=== PATIENT | female | born 1960 | race Caucasian/White ===

== ENCOUNTER 2017-08-17 12:18 | Emergency (ER) | payer SELFPAY ==
--- NOTE | 2017-08-17 15:09 | EDM.PDOC ---
ED HPI GENERAL MEDICAL PROBLEM - General Chief Complaint: Cardiovascular Problem Stated Complaint: CHEST PAIN Time Seen by Provider: 08/17/17 12:25 Source of Information: Reports: Patient, RN Notes Reviewed - History of Present Illness INITIAL COMMENTS - FREE TEXT/NARRATIVE: 57 year old female with sudden onset of sharp pain across mid chest times time this past morning about 1 1/2 hrs ago. Episodes of pain were very brief but than became weak, light headed, dizzy, almost passed out. She feels fine now. Has not been ill. No cough, fever, dyspnea, or hx of Htn, diabetes or CAD. Does not smoke. Neg fam. hx. No abd pain nausea or vomting. Does get GE reflux. 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 Denies: Fever, Chills HEENT: Reports: No Symptoms Respiratory: Reports: Shortness of Breath (mild, gone). Denies: Pleuritic Chest Pain, Cough Cardiovascular: Reports: Chest Pain (gone), Lightheadedness, Other (near syncope ). Denies: Edema GI/Abdominal: Denies: Abdominal Pain, Nausea, Vomiting Musculoskeletal: Denies: Shoulder Pain, Arm Pain, Back Pain Skin: Reports: No Symptoms Neurological: Reports: Dizziness ED EXAM, GENERAL - Physical Exam Exam: See Below General Appearance: Alert, No Apparent Distress Eye Exam: Bilateral Eye: PERRL Throat/Mouth: Normal Inspection Head: Atraumatic Neck: Supple, Full Range of Motion Respiratory/Chest: No Respiratory Distress, Lungs Clear, Normal Breath Sounds Cardiovascular: Regular Rate, Rhythm, Other (chest wall nontender) GI/Abdominal: Soft, Non-Tender Back Exam: Normal Inspection Neurological: Alert, Oriented, No Motor/Sensory Deficits Skin Exam: Warm, Dry, Normal Color Course - Vital Signs Last Recorded V/S: Last Vital Signs Temp 97.5 F 08/17/17 12:20 Pulse 77 08/17/17 12:20 Resp 18 08/17/17 12:20 BP 136/68 08/17/17 12:20 Pulse Ox 100 08/17/17 12:20 - Orders/Labs/Meds Orders: Active Orders 24 hr Category Date Time Status EKG 12 Lead [EKG Documentation Completion] [RC] STAT Care 08/17/17 13:08 Active Holter Monitor 48 Hours [RC] .PRN Care 08/17/17 14:35 Active Labs: Laboratory Tests 08/17/17 08/17/17 Range/Units 13:26 13:26 WBC 6.24 (3.98-10.04) K/mm3 RBC 4.61 (3.98-5.22) M/mm3 Hgb 14.0 (11.2-15.7) gm/L Hct 40.8 (34.1-44.9) % MCV 88.5 (79.4-94.8) fl MCH 30.4 (25.6-32.2) pg MCHC 34.3 (32.2-35.5) g/dl RDW Std Deviation 40.0 (36.4-46.3) fL Plt Count 229 (182-369) K/mm3 MPV 9.6 (9.4-12.3) fl Neut % (Auto) 64.0 (34.0-71.1) % Lymph % (Auto) 24.2 (19.3-51.7) % [place] % (Auto) 9.1 (4.7-12.5) % Eos % (Auto) 2.1 (0.7-5.8) Baso % (Auto) 0.6 (0.1-1.2) % Neut # (Auto) 3.99 (1.56-6.13) K/mm3 Lymph # (Auto) 1.51 (1.18-3.74) K/mm3 [place] # (Auto) 0.57 H (0.24-0.36) K/mm3 Eos # (Auto) 0.13 (0.04-0.36) K/mm3 Baso # (Auto) 0.04 (0.01-0.08) K/mm3 Sodium 140 (136-145) mEq/L Potassium 4.1 (3.5-5.1) mEq/L Chloride 102 (98-107) mEq/L Carbon Dioxide 27 (21-32) mEq/L Anion Gap 15.1 H (5-15) BUN 19 H (7-18) mg/dL Creatinine 0.8 (0.55-1.02) mg/dL Est Cr Clr Drug Dosing 59.89 mL/min Estimated GFR (MDRD) > 60 (>60) mL/min BUN/Creatinine Ratio 23.8 H (14-18) Glucose 89 (74-106) mg/dL Calcium 9.2 (8.5-10.1) mg/dL Total Bilirubin 0.4 (0.2-1.0) mg/dL AST 19 (15-37) U/L ALT 25 (14-59) U/L Alkaline Phosphatase 54 (46-116) U/L Troponin I < 0.017 (0.00-0.056) ng/mL Total Protein 7.1 (6.4-8.2) g/dl Albumin 4.1 (3.4-5.0) g/dl Globulin 3.0 gm/dL Albumin/Globulin Ratio 1.4 (1-2) - Re-Assessments/Exams Free Text/Narrative Re-Assessment/Exam: 08/17/17 15:51 trop, other labs normal, EKG is good, no ectopy, will have her go home with 48 hr holter to further check for possible rythm problem. Departure - Departure Time of Disposition: 15:04 Disposition: Home, Self-Care 01 Condition: Fair Clinical Impression: Atypical chest pain Instructions: Nonspecific Chest Pain, [id number] Referrals: Romeo Boyle MD [Primary Care Provider] - Forms: ED Department Discharge Additional Instructions: 48 hour holter moniter, it will than be read by a Public Events Facilities Rental Manager. Follow up with Dr Tena in about 1 week. Call for appt., return to ED as needed if symptoms worsening in any way. - My Orders Last 24 Hours: My Active Orders 08/17/17 13:08 EKG 12 Lead [EKG Documentation Completion] [RC] STAT 08/17/17 14:35 Holter Monitor 48 Hours [RC] .PRN - Assessment/Plan Last 24 Hours: My Active Orders 08/17/17 13:08 EKG 12 Lead [EKG Documentation Completion] [RC] STAT 08/17/17 14:35 Holter Monitor 48 Hours [RC] .PRN
== END 2017-08-17 15:15 | disposition home or self-care (01) ==
LOC: JD.ED 12:18
DX: R07.89 Other chest pain (principal); K21.9 Gastro-esophageal reflux disease without esophagitis; Z88.8 Allergy status to other drugs, medicaments and biological substances; Z79.899 Other long term (current) drug therapy
CPT/HCPCS: 36415; 80053; 84484; 85025; 93005; 93225; 93226; 99285-25

== ENCOUNTER 2020-09-25 08:09 | Emergency (ER) | payer SELFPAY ==
[2020-09-25] MEDS ORDERED: Ondansetron 4 MG/2 ML SDV IVPUSH ONE (08:27)
[2020-09-25] MEDS ORDERED: Dextrose 5%-0.9% NaCl 1,000 ML IV SCH (08:30)
--- NOTE | 2020-09-25 08:31 | EDM.PDOC ---
ED HPI GENERAL MEDICAL PROBLEM - General Chief Complaint: Syncope Stated Complaint: POSS REACTION TO COVID VACCINE Time Seen by Provider: 09/25/20 08:26 Source of Information: Reports: Patient, Family (spouse) History Limitations: Reports: No Limitations - History of Present Illness INITIAL COMMENTS - FREE TEXT/NARRATIVE: 60-year-old female brought to the ED by her . History suggest she got up to use the bathroom this morning and did have a normal bowel movement while on the toilet. How are her heard rustling of tissue box in the bathroom and a snoring-like noise. When he attended her she he was up against the wall still sitting on the toilet but eyes were rolled back in her head and she was unresponsive to verbal and physical stimuli. He did not recognize any tonic- clonic movements of her extremities. She did not appear to be breathing normally. He laid her down on the bathroom floor and she came around within 10 to 15 seconds and within 15 seconds of that she was able to speak and answer questions normally. She had broken out in a cool sweat. She was very nauseated and did have dry heaves and emesis x1. After 20 minutes they elected to get up from the floor and once again she felt nauseated and did have dry heaves this time. There is very little in her stomach as she has not eaten since last night. She was dizzy lightheaded and she had to lay down again for a while. She did not take any of her medications this morning. They were concerned that this may be related to the COVID-19 shots which they both got yesterday. She relates a sore arm but no other symptoms that would suggest an allergic response. After the second event she was not ataxic or did not require help or assistance to walk. She could walk normally although she felt slightly dizzy. Onset: Today, Sudden Onset Date: 09/25/20 Onset Time: 07:40 Duration: Minutes: Location: Reports: Generalized (Syncopal event while sitting on the toilet and then a second syncopal event associate with dry heaving. She recovered from both of these episodes promptly and was able to speak and answer questions normally. No signs of seizure activity) Quality: Reports: Other (Transient loss of consciousness at home x2 this morning.) Severity: Moderate Improves with: Reports: Other (With resting on the floor until she could recover from nausea and vasovagal response.) Worsens with: Reports: None Context: Reports: Other (Spontaneous occurrence). Denies: Activity, Exercise, Lifting, Sick Contact, Trauma Associated Symptoms: Reports: Confusion (Transiently confused with after she awoke from first syncopal event.), Diaphoresis, Loss of Appetite, Malaise, Nausea/Vomiting, Weakness. 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) (Did not take any medications.) - Related Data Allergies Allergy/AdvReac Type Severity Reaction Status Date / Time levofloxacin [From Levaquin] Allergy Itching Verified 09/25/20 08:24 Home Meds: Home Meds Omeprazole 20 mg PO DAILY PRN 08/17/17 [History] Ondansetron [Zofran] 4 mg BUCCAL Q6H PRN #5 tab 09/25/20 [Rx] Past Medical History - Past Health History Medical/Surgical History: Denies Medical/Surgical History Gastrointestinal History: Reports: GERD (Takes omeprazole 20 mg daily) Endocrine/Metabolic History: Reports: Other (See Below) 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 - Past Surgical History Musculoskeletal Surgical History: Reports: Knee Replacement, Other (See Below) Other Musculoskeletal Surgeries/Procedures:: back surgery Social & Family History - Family History Family Medical History: No Pertinent Family History - Tobacco Use Tobacco Use Status *Q: Never Tobacco User - Caffeine Use Caffeine Use: Reports: None - Recreational Drug Use Recreational Drug Use: No - Living Situation & Occupation Living situation: Reports: Occupation: Employed [employer] GENERAL - Review of Systems Review Of Systems: See Below Constitutional: Reports: Malaise, Weakness, Fatigue, Decreased Appetite. Denies: Fever, Chills HEENT: Reports: No Symptoms Respiratory: Reports: No Symptoms Cardiovascular: Reports: No Symptoms, Lightheadedness (Today). Denies: Chest Pain, Blood Pressure Problem, Claudication, Orthopnea Endocrine: Reports: Fatigue (Feels fatigued at present.) GI/Abdominal: Reports: Nausea, Vomiting (Nausea and vomiting x1 at home this morning then dry heaves after this x1.), Other (History of chronic reflux disease.) : Reports: No Symptoms Musculoskeletal: Reports: No Symptoms Skin: Reports: No Symptoms Neurological: Reports: Confusion, Dizziness (Transient confusion transient dizziness), Syncope (Syncope x2 events this morning first 1 was well seated on the toilet after bowel movement.), Weakness. Denies: Pre-Existing Deficit, Seizure, Tremors, Trouble Speaking, Difficulty Walking, Change in Speech, Gait Disturbance, Other Psychiatric: Reports: No Symptoms Hematologic/Lymphatic: Reports: No Symptoms Immunologic: Reports: No Symptoms - Physical Exam Exam: See Below Exam Limited By: No Limitations General Appearance: Alert, WD/WN, Mild Distress, Other (She has good color. Temperature is 36.5 degrees she does not feel warm palpation. Heart rate was 76 and sinus on the monitor respiratory 16 with O2 sats of 97%. BP 118/69.) Eye Exam: Bilateral Eye: Normal Inspection, PERRL (No scleral icterus or blepharal pallor.) Throat/Mouth: Normal Inspection, Normal Lips, Normal Oropharynx, Other (Uvula is in the midline.) Head Exam: Atraumatic ( Tongue is mildly dry.), Normocephalic Neck: Normal Inspection, Supple, Non-Tender, Full Range of Motion. No: Carotid Bruit, Lymphadenopathy (L), Lymphadenopathy (R) Respiratory/Chest: No Respiratory Distress, Lungs Clear, Normal Breath Sounds, No Accessory Muscle Use Cardiovascular: Normal Peripheral Pulses, Regular Rate, Rhythm, No Edema, No G allop, No JVD, No Murmur, No Rub GI/Abdominal: Normal Bowel Sounds, Soft, Non-Tender, No Organomegaly, No Abnormal Bruit, No Mass, Pelvis Stable Neuro Exam (Abbreviated): Alert, Oriented, CN II-XII Intact, Normal Cognition, Normal Gait (According to her she walked into the hospital without any issues.), No Motor/Sensory Deficits. No: Normal Reflexes Back Exam: Normal Inspection, Full Range of Motion. No: CVA Tenderness (L), CVA Tenderness (R) Extremities: Normal Inspection, Normal Range of Motion, Non-Tender, No Pedal Edema Psychiatric: Normal Mood (Mildly anxious.), Anxious Skin Exam: Warm, Dry, Intact, Normal Color, No Rash #1 Interpretation EKG Date: 09/25/20 Time: 08:43 Rhythm: NSR Rate (Beats/Min): 62 Oil Trough: LAD-Left Oil Trough Deviation (-44 degrees) P-Wave: Present (T wave is inverted in aVL nonspecific finding) QRS: Other (Left atrial hypertrophy pattern decreased voltage in the limb leads. RSR prime wave V1 V2 consider normal variant with initial poor R wave progression Q wave lead III near Q waves in aVF consider possible old inferior wall myocardial infarction) ST-T: Other (T wave flattening in leads I and aVL) EKG Interpretation Comments: Abnormal ECG Course - Vital Signs Last Recorded V/S: Last Vital Signs Temp 36.5 C 09/25/20 08:20 Pulse 76 09/25/20 08:20 Resp 16 09/25/20 08:20 BP 118/69 09/25/20 08:20 Pulse Ox 97 09/25/20 08:20 - Orders/Labs/Meds Orders: Active Orders 24 hr Category Date Time Status EKG Documentation Completion [RC] STAT Care 09/25/20 08:28 Active Dextrose 5%-0.9% NaCl [Dextrose 5%-Normal Saline] 1,000 Med 09/25/20 08:30 Active ml IV ASDIRECTED Medication Orders Dextrose/Sodium Chloride (Dextrose 5%-Normal Saline) 1,000 mls @ 999 mls/hr IV ASDIRECTED CHERYL Last Admin: 09/25/20 08:35 Dose: 999 mls/hr Documented by: [email or web address] Labs: Laboratory Tests 09/25/20 09/25/20 09/25/20 Range/Units 08:30 08:30 08:30 WBC 8.23 (3.98-10.04) K/mm3 RBC 4.68 (3.98-5.22) M/mm3 Hgb 14.3 (11.2-15.7) gm/dl Hct 42.2 (34.1-44.9) % MCV 90.2 (79.4-94.8) fl MCH 30.6 (25.6-32.2) pg MCHC 33.9 (32.2-35.5) g/dl RDW Std Deviation 40.4 (36.4-46.3) fL Plt Count 225 (182-369) K/mm3 MPV 9.5 (9.4-12.3) fl Neut % (Auto) 89.7 H (34.0-71.1) % Lymph % (Auto) 4.9 L (19.3-51.7) % [place] % (Auto) 5.0 (4.7-12.5) % Eos % (Auto) 0.1 L (0.7-5.8) Baso % (Auto) 0.2 (0.1-1.2) % Neut # (Auto) 7.38 H (1.56-6.13) K/mm3 Lymph # (Auto) 0.40 L (1.18-3.74) K/mm3 [place] # (Auto) 0.41 H (0.24-0.36) K/mm3 Eos # (Auto) 0.01 L (0.04-0.36) K/mm3 Baso # (Auto) 0.02 (0.01-0.08) K/mm3 Manual Slide Review Abnormal smear D-Dimer, Quantitative 0.27 (0.19-0.50) mg/L Sodium 141 (136-145) mEq/L Potassium 4.1 (3.5-5.1) mEq/L Chloride 104 (98-107) mEq/L Carbon Dioxide 25 (21-32) mEq/L Anion Gap 16.1 H (5-15) BUN 16 (7-18) mg/dL Creatinine 0.9 (0.55-1.02) mg/dL Est Cr Clr Drug Dosing 55.69 mL/min Estimated GFR (MDRD) > 60 (>60) mL/min BUN/Creatinine Ratio 17.8 (14-18) Glucose 144 H (80-115) mg/dL Calcium 9.1 (8.5-10.1) mg/dL Total Bilirubin 0.8 (0.2-1.0) mg/dL AST 17 (15-37) U/L ALT 24 (14-59) U/L Alkaline Phosphatase 55 (46-116) U/L C-Reactive Protein 0.2 (<1.0) mg/dL Total Protein 7.3 (6.4-8.2) g/dl Albumin 4.0 (3.4-5.0) g/dl Globulin 3.3 gm/dL Albumin/Globulin Ratio 1.2 (1-2) Meds: Medications Generic Name Dose Route Start Last Admin Trade Name Freq PRN Reason Stop Dose Admin Dextrose/Sodium Chloride 1,000 mls @ 999 mls/hr 09/25/20 08:30 09/25/20 08:35 Dextrose 5%-Normal Saline IV 999 mls/hr ASDIRECTED CHERYL Administration Discontinued Medications Generic Name Dose Route Start Last Admin Trade Name Sally PRN Reason Stop Dose Admin Ondansetron HCl 4 mg 09/25/20 08:27 09/25/20 08:35 Ondansetron 4 Mg/2 Ml Sdv IVPUSH 09/25/20 08:28 4 mg ONETIME ONE Administration - Radiology Interpretation Free Text/Narrative:: 60-year-old female presents to the ED after a syncopal event x2 this morning. She she was on the toilet in the bathroom initially this morning around 0740 hrs. when she had a normal bowel movement. Her heard some abnormal noises in the bathroom and a bit of a thud and when he arrived in the bathroom she was unresponsive and leaning up against the wall with her eyes rolled back in her head. She did not respond to verbal or physical stimuli. He did not appreciate any tonic-clonic movements of her extremities. He laid her down on the floor and she came to. He states this was 10 to 15 seconds. Within 10 to 15 seconds that she could talk normally and make sense and recognize where she was and what it happened. She laid on the floor for good 20 minutes before she was assisted up by her . When she got up again she had nausea with dry heaves. She did have nausea and vomiting on the first event as well. No diarrhea. She was diaphoretic at home. At present she is feeling back to normal other than mild nausea. Concern initially was whether this was a reaction to the COVID-19 vaccine which was there her second shot yesterday afternoon. There is no redness swelling out of her injection site. Lungs are clear neuro exam is normal benign abdominal exam. I suspect she has more of a stomach flu with a vasovagal response causing syncopal event. She will have his ECG and be on the lunchroom monitor. IV will be D5 normal saline at open. Zofran 4 mg IV as well. Routine labs to be performed. - Re-Assessments/Exams Free Text/Narrative Re-Assessment/Exam: 09/25/20 09:25 Labs reveal a normal white count at 8.23 with 90% neutrophils. Hemoglobin is 14.3 with hematocrit of 42.2. Platelet count 225,000. The smear reveals no banded neutrophils seen. Noted neutrophilia and lymphopenia. D- dimer was 0.27. Sodium 141 with potassium of 4.1. Chloride 104 with a bicarb of 25. Anion gap is 16.1 minimally elevated. BUN is 16 with a creatinine of 0.9 and a GFR greater than 60. Glucose is 144. Calcium 9.1. Liver function normal C-reactive protein 0.2 total protein 7.3 albumin fraction 4.0 Departure - Departure Time of Disposition: 09:40 Disposition: Home, Self-Care 01 Condition: Fair Clinical Impression: Vasovagal syncope - Discharge Information *PRESCRIPTION DRUG MONITORING PROGRAM REVIEWED*: Not Applicable *COPY OF PRESCRIPTION DRUG MONITORING REPORT IN PATIENT NAVI: Not Applicable Prescriptions: Ondansetron [Zofran] 4 mg BUCCAL Q6H PRN #5 tab PRN Reason: nausea or vomiting Referrals: Romeo Boyle MD [Primary Care Provider] - Forms: ED Department Discharge Additional Instructions: Evaluation in the emergency room this morning in regards to syncopal event or fainting spell that occurred at home this morning while seated on the toilet. It appears this was secondary to a vasovagal attack. The nausea reflex will often lower the heart rate which in turn lowers the blood pressure and limits blood flow to your brain transiently causing her to lose consciousness. Since you awoke fairly promptly and were able to speak and answer appropriately within a short period of time there is no clinical evidence of a seizure but a vasovagal attack that caused syncope event. After this she did develop further dry heaves secondary to vasovagal vagal response he did not have anything in her stomach to vomit up. This in turn would cause diaphoresis or cold sweat and feeling lightheaded dizzy and weak. For this reason lab work was performed whic h proved to be normal. We received a liter of IV fluids while in the ED and Zofran 4 mg intravenously for nausea relief. Try and drink plenty of fluids today to maintain hydration. Gatorade or Powerade is an excellent source of rehydrating fluid. Advance tolerate diet as tolerated. I would try crackers first and if tolerated may advance to toast with jam on it etc. I did write a prescription for Zofran 4 mg tablets that can be taken under the tongue every 4- 6 hours as necessary for relief of further nausea or vomiting as you may have picked up the stomach flu. No clinical evidence that this was related to having your second Covid vaccine yesterday. Sepsis Event Note (ED) - Evaluation Sepsis Screening Result: No Definite Risk - Focused Exam Vital Signs: Vital Signs Temp Pulse Resp BP Pulse Ox 09/25/20 08:20 36.5 C 76 16 118/69 97 - My Orders Last 24 Hours: My Active Orders 09/25/20 08:28 EKG Documentation Completion [RC] STAT 09/25/20 08:30 Dextrose 5%-0.9% NaCl [Dextrose 5%-Normal Saline] 1,000 ml IV ASDIRECTED - Assessment/Plan Last 24 Hours: My Active Orders 09/25/20 08:28 EKG Documentation Completion [RC] STAT 09/25/20 08:30 Dextrose 5%-0.9% NaCl [Dextrose 5%-Normal Saline] 1,000 ml IV ASDIRECTED
== END 2020-09-25 09:50 | disposition home or self-care (01) ==
LOC: JD.ED 08:09
DX: R55 Syncope and collapse (principal)
CPT/HCPCS: 36415; 80053; 85025; 85379; 86140; 93005; 96374; 99284; J2405; J7042; 93010